=== PATIENT | female | born 1995 | race Two or more races ===

== ENCOUNTER 2017-02-02 11:55 | Emergency (ER) | payer OTHER ==
[2017-02-02] MEDS ORDERED: PSEUDOEPHEDRINE HCL 30 MG TABLET PO ONE (13:15)
[2017-02-02] MEDS ORDERED: DIPHENHYDRAMINE HCL 25 MG CAPSULE PO ONE (13:15)
[2017-02-02] MEDS ORDERED: ACETAMINOPHEN 325 MG TABLET PO ONE (13:15)
--- NOTE | 2017-02-02 13:19 | ER Document Report ---
HPI - HPI Patient complains to provider of: Sore throat Pain Level: 1 Context: Patient is a 21-year-old female presents emergency department complaining of sore throat that started on Monday with associated runny nose, dry cough. Denies any fevers, chills. Admits to pain with swallowing but denies any difficulty tolerating solids or liquids, shortness of breath. Denies any sick contacts or strep contacts. - CARDIOVASCULAR Cardiovascular: DENIES: Chest pain Past Medical History - Social History Smoking Status: Never Smoker Chew tobacco use (# tins/day): No Frequency of alcohol use: None Drug Abuse: None Family History: Reviewed & Not Pertinent Renal/ Medical History: Denies: Hx Peritoneal Dialysis Surgical Hx: Negative Vertical Provider Document - CONSTITUTIONAL Agree With Documented VS: Yes Exam Limitations: No Limitations General Appearance: WD/WN, No Apparent Distress - HEENT HEENT: Atraumatic, Normal ENT Exam, Normocephalic, PERRLA. negative: Pharyngeal Exudate, Pharyngeal Tenderness, Pharyngeal Erythema, Tympanic Membrane Red, Tympanic Membrane Bulging Notes: Uvula midline. Airway patent. No evidence of tonsillar enlargement, peritonsillar abscess, retropharyngeal abscess. - NECK Neck: Normal Inspection. negative: Lymphadenopathy-Left, Lymphadenopathy-Right - RESPIRATORY Respiratory: Breath Sounds Normal, No Respiratory Distress, Chest Non-Tender. negative: Rales, Rhonchi, Wheezing, Other O2 Sat by Pulse Oximetry: 98 - CARDIOVASCULAR Cardiovascular: Regular Rate, Regular Rhythm, No Murmur Pulses: Normal: Radial - NEURO Level of Consciousness: Awake, Alert, Appropriate Motor/Sensory: No Motor Deficit, No Sensory Deficit - DERM Integumentary: Warm, Dry, No Rash Course - Re-evaluation Re-evalutation: 02/02/17 13:17 Patient is a 21-year-old female is hemodynamically stable, no acute distress and afebrile. Rapid strep is negative. Patient does not present with any tonsillar exudates, pharyngeal erythema, fever and has presence of a cough. Low clinical suspicion for strep infection. Culture is pending. At this time will discharge patient home with [id number] medications for an upper respiratory infection and to follow-up with primary care. - Vital Signs Vital signs: Temp Pulse Resp BP Pulse Ox 97.9 F 88 18 123/88 H 98 02/02/17 12:39 02/02/17 12:39 02/02/17 12:39 02/02/17 12:39 02/02/17 12:39 Discharge - Discharge Clinical Impression: Sore throat Condition: Good Disposition: HOME, SELF-CARE Instructions: Sore Throat ([facility]) Additional Instructions: [id number] medications to utilize include but are not limited to Tylenol, Benadryl, pseudoephedrine. Forms: Parent Work Note
[2017-02-02 13:34] VITALS: BP 130/85
== END 2017-02-02 13:34 | disposition home or self-care (01) ==
LOC: ER 11:55
DX: J02.9 Acute pharyngitis, unspecified (principal); R05 Cough
CPT/HCPCS: 87070; 87880; 99283